=== PATIENT | female | born 2000 | race Caucasian/White ===

== ENCOUNTER 2020-05-02 12:03 | Outpatient (CLI) | payer OTHER | END 2020-05-02 23:59 | disposition critical access hospital (66) | LOC: EMS 12:03 | PROVIDERS: ATTEND Surgery | DX: M25.552 Pain in left hip (principal); V03.10XA Pedestrian on foot injured in collision with car, pick-up truck or van in traffic accident, initial encounter; Y93.01 Activity, walking, marching and hiking; Y92.413 State road as the place of occurrence of the external cause | CPT/HCPCS: A0425; A0429 ==

== ENCOUNTER 2020-07-03 14:40 | Emergency (ER) | payer OTHER ==
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
[2020-07-03 15:14] VITALS: BP 125/69
== END 2020-07-03 15:14 | disposition home or self-care (01) ==
LOC: ED 14:40
DX: M25.572 Pain in left ankle and joints of left foot (principal); M54.5 Low back pain
CPT/HCPCS: 99282; 99283

== ENCOUNTER 2021-01-18 11:20 | Emergency (ER) | payer OTHER ==
[2021-01-18 11:54] LABS: BASOPHILS % (AUTO) 0.3 %; EOSINOPHILS % (AUTO) 0.3 %; HCT - HEMATOCRIT 42.5 % (37.0-47.0); HGB - HEMOGLOBIN 14.8 g/dL (12.0-16.0); LYMPHOCYTES % (AUTO) 16.9 %; MEAN CORPUSCULAR HEMOGLOBIN 29.4 pg (27.0-31.0); MEAN CORPUSCULAR HGB CONC 34.8 g/dL (32.0-36.0); MEAN CORPUSCULAR VOLUME 84.5 fL (81.0-99.0); MEAN PLATELET VOLUME 9.2 fL (7.9-10.8); MONOCYTES # (AUTO) 0.8 10^3/uL (0.0-1.0); MONOCYTES % (AUTO) 6.6 %; NEUTROPHILS # (AUTO) 8.7 10^3/uL (1.5-6.6); NEUTROPHILS % (AUTO) 75.5 %; PLT - PLATELET COUNT 275 10^3/uL (130-450); RED BLOOD COUNT 5.03 10^6/uL (4.20-5.40); WHITE BLOOD COUNT 11.6 x10^3/uL (4.8-10.8)
[2021-01-18 11:57] LABS: BILIRUBIN,URINE NEGATIVE (NEGATIVE); GLUCOSE, URINE (UA) NEGATIVE (NEGATIVE); KETONES,URINE (UA) NEGATIVE (NEGATIVE); LEUKOCYTE ESTERASE, URINE MODERATE (NEGATIVE); NITRITE,URINE NEGATIVE (NEGATIVE); OCCULT BLOOD,URINE MODERATE (NEGATIVE); PROTEIN,URINE 30 mg/dL (NEGATIVE); UROBILINOGEN,URINE 0.2 (NORMAL) E.U./dL (NORMAL)
[2021-01-18 11:59] LABS: CLARITY,URINE SL. CLOUDY (CLEAR); HCG UR QUAL NEGATIVE
[2021-01-18 12:00] LABS: BACTERIA,URINE Rare /HPF (None Seen); SQUAMOUS EPITHELIAL CELL,UR FEW Squamous (<= Few)
[2021-01-18 12:06] LABS: ALBUMIN 4.7 g/dL (3.2-5.5); ALBUMIN/GLOBULIN RATIO 1.5 (1.0-2.2); BILIRUBIN,TOTAL 1.1 mg/dL (0.2-1.0); CALCIUM 9.7 mg/dL (8.5-10.3); CREATININE 0.7 mg/dL (0.4-1.0); POTASSIUM 3.8 mmol/L (3.5-5.0); TOTAL PROTEIN 7.8 g/dL (6.7-8.2)
--- NOTE | 2021-01-18 13:47 | ED Physician Documentation ---
PD HPI ABD PAIN - Stated complaint Stated Complaint: STOMACH PX - Chief complaint Chief Complaint: Abd Pain - History obtained from History obtained from: Patient - History of Present Illness Timing - onset: How many days ago (2) Timing - duration: Days (2) Timing - details: Abrupt onset (had some pain lower abd cramping for couple days and the abrupt onset pelvic pain last night, that persists into today.), Still present Quality: Aching, Sharp, Pain. No: Fullness/distended Location: RLQ (with some pain to right today), Suprapubic, LLQ (main area at onset) Improved by: No: Eating Worsened by: Moving, Palpation. No: Eating Associated symptoms: Nausea, Dysuria. No: Fever, Vomiting, Diarrhea, Constipation, Loss of appetite, Vaginal bleeding, Vaginal dc Similar symptoms before: Has not had sx before Recently seen: Not recently seen Review of Systems Constitutional: denies: Fever, Chills Nose: denies: Rhinorrhea / runny nose, Congestion Throat: denies: Sore throat Respiratory: denies: Cough GI: reports: Abdominal Pain, Nausea. denies: Constipation, Diarrhea : reports: Dysuria, Frequency, LMP (November, but states her periods are typically irregular.). 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 HEENT: None Psych: None Musculoskeletal: None Derm: None - Past Surgical History Past Surgical History: No - Present Medications Home Medications: Ambulatory Orders Medication Instructions Recorded Confirmed HYDROcod/ACETAM 5/325 [[place] 5/325] 1 ea PO Q6H PRN #12 tablet 01/18/21 Ibuprofen [Motrin] 600 mg PO TID PRN #15 tab 01/18/21 Ondansetron Odt [Zofran] 4 mg TL Q6H PRN #10 tablet 01/18/21 cephALEXin [Keflex] 500 mg PO TID 5 Days #15 cap 01/18/21 - Allergies Allergies/Adverse Reactions: Allergies Allergy/AdvReac Type Severity Reaction Status Date / Time No Known Drug Allergies Allergy Verified 01/18/21 11:34 - Social History Does the pt smoke?: No Smoking Status: Never smoker Does the pt drink ETOH?: No Does the pt have substance abuse?: No - Immunizations Immunizations are current?: Yes - POLST Patient has POLST: No PD ED PE NORMAL - Vitals Vital signs reviewed: Yes - General General: Alert and oriented X 3, Well developed/nourished, Other (appears in pain) - Neck Neck: Supple, no meningeal sign, No adenopathy - Cardiac Cardiac: RRR, No murmur - Respiratory Respiratory: Clear bilaterally - Abdomen Abdomen: Normal bowel sounds, Soft, Non distended, No organomegaly, Other (tender with some guarding LLQ mainly but some to RLQ and suprapubic/midline. No percussion nor rebound tenderness. ) - Female Female : Deferred - Rectal Rectal: Deferred - Back Back: No CVA TTP - Derm Derm: Normal color, Warm and dry, No rash Results - Vitals Vitals: Vital Signs - 24 hr 01/18/21 01/18/21 01/18/21 11:29 13:48 15:00 Temperature 36.5 C 36.7 C Heart Rate 64 73 71 Respiratory 16 18 14 Rate Blood Pressure 126/79 117/81 H 105/67 O2 Saturation 98 99 100 01/18/21 16:33 Temperature 36.8 C Heart Rate 71 Respiratory 18 Rate Blood Pressure 107/66 O2 Saturation 98 Oxygen O2 Source Room air - Labs Labs: Laboratory Tests 01/18/21 01/18/21 01/18/21 11:45 11:49 11:49 WBC 11.6 H RBC 5.03 Hgb 14.8 Hct 42.5 MCV 84.5 MCH 29.4 MCHC 34.8 RDW 13.0 Plt Count 275 MPV 9.2 Neut # (Auto) 8.7 H Lymph # (Auto) 2.0 [place] # (Auto) 0.8 Eos # (Auto) 0.0 Baso # (Auto) 0.0 Absolute Nucleated RBC 0.00 Nucleated RBC % 0.0 Sodium 139 Potassium 3.8 Chloride 104 Carbon Dioxide 25 Anion Gap 10.0 BUN 18 Creatinine 0.7 Estimated GFR (MDRD) 107 Glucose 103 H Calcium 9.7 Total Bilirubin 1.1 H AST 24 ALT 26 Alkaline Phosphatase 59 Total Protein 7.8 Albumin 4.7 Globulin 3.1 Albumin/Globulin Ratio 1.5 Lipase 24 Urine Color YELLOW Urine Clarity SL. CLOUDY Urine pH 7.0 Ur Specific [place] 1.020 Urine Protein 30 H Urine Glucose (UA) NEGATIVE Urine Ketones NEGATIVE Urine Occult Blood MODERATE H Urine Nitrite NEGATIVE Urine Bilirubin NEGATIVE Urine Urobilinogen 0.2 (NORMAL) Ur Leukocyte Esterase MODERATE H Urine RBC 11-25 H Urine WBC 11-25 H Ur Squamous Epith Cells FEW Squamous Urine Bacteria Rare Ur Microscopic Review INDICATED Urine Culture Comments INDICATED Urine HCG, Qual NEGATIVE - Rads (name of study) pelvic/abd U/S Radiology: Prelim report reviewed (normal ovaries. small amount pelvic free fluid per tech verbal. appendix not visualized. ), See rad report PD MEDICAL DECISION MAKING - ED course Complexity details: re-evaluated patient (After some pain medicine. She is feeling better. Reevaluation of the stomach still has left lower suprapubic tenderness with minimal to none on the right. Shared decision was to not investigate further but presume a ruptured cyst and also likely bladder infection.), considered differential (Pain predominantly left lower but also some to the right lower quadrant. Abrupt onset last night. Will get ultrasound to evaluate for cysts torsion and free fluid. Can look for appendix as well.), d/w patient Departure - Departure Disposition: 01 Home, Self Care Clinical Impression: Lower abdominal pain, Ruptured ovarian cyst UTI (urinary tract infection) Qualifiers: Urinary tract infection type: acute cystitis Hematuria presence: without hematuria Qualified Code(s): N30.00 - Acute cystitis without hematuria Condition: Stable Record reviewed to determine appropriate education?: Yes Instructions: ED Cyst Ovarian, ED UTI Cystitis Female Prescriptions: cephALEXin [Keflex] 500 mg PO TID 5 Days #15 cap Ibuprofen [Motrin] 600 mg PO TID PRN #15 tab PRN Reason: Pain HYDROcod/ACETAM 5/325 [[place] 5/325] 1 ea PO Q6H PRN #12 tablet PRN Reason: Pain Ondansetron Odt [Zofran] 4 mg TL Q6H PRN #10 tablet PRN Reason: Nausea / Vomiting Comments: Off work 1 to 2 days due to acute pain. You do have likely a bladder infection based on your urine test. However your pain seems more likely to have come from a ruptured cyst on the left. There is no cyst seen on ultrasound but there is some free fluid in the area and the pattern and character of your pain would go along with that. Stay well-hydrated. Ondansetron if needed for nausea. Ibuprofen 3 times a day with food for the next several days. To that add Tylenol or hydrocodone as needed for pain in the short-term. Cephalexin antibiotic as prescribed for 5 days for the bladder. I would anticipate improvement over the next 2 to 3 days and resolution by 3 to 5 days. Recheck if not improving in that timeframe and return if worsening to include: worse pain, fever, repetitive vomiting, bloody stool or other concerns. Forms: Activity restrictions Discharge Date/Time: 01/18/21 16:51
[2021-01-18] MEDS ORDERED: MORPHINE 2 MG/ML CARPUJECT IVP STA (13:59)
[2021-01-18] MEDS ORDERED: SODIUM CHLORIDE 0.9% 1,000 ML IV STA (13:59)
[2021-01-18] MEDS ORDERED: KETOROLAC 15 MG/ML VIAL IVP STA (13:59)
[2021-01-18] MEDS ORDERED: ONDANSETRON 4 MG/2 ML VIAL IVP STA (13:59)
--- NOTE | 2021-01-18 16:18 | Ultrasound Report ---
PROCEDURE: Abdomen Limited INDICATIONS: lower abd pain today TECHNIQUE: Real-time focused scanning was performed of the abdomen, with image documentation. COMPARISON: FINDINGS: The appendix was not discretely visualized. A small amount of free fluid is demonstrated within the pelvis. IMPRESSION: 1. Appendix not discretely visualized sonographically. 2. Small amount of pelvic free fluid appears within physiologic limits. Reviewed by: Keven Barone MD on 01/18/2021 4:17 PM PDT Approved by: Keven Barone MD on 01/18/2021 4:17 PM PDT Station ID: [id number]
[2021-01-18] MEDS ORDERED: cephALEXin 250 MG CAPSULE PO STA (16:19)
--- NOTE | 2021-01-18 16:21 | Ultrasound Report ---
PROCEDURE: Pelvic w/Transvag+Doppler Comp INDICATIONS: pelvic pain, R TECHNIQUE: Real-time scanning was performed of the pelvic organs, with image documentation. Additional endovagi nal scanning was necessary due to incomplete visualization of the adnexal and endometrial structures by transabdominal scanning. COMPARISON: None. FINDINGS: Uterus: Uterus is levoverted and measures up to 3.4 x 3.4 x 5.2 cm. The endometrium measures 0.4 cm in combined thickness. Ovaries: The right ovary measures 3.2 x 2.1 x 2.2 cm on the left ovary measures 3.7 x 2.3 x 2.8 cm. No adnexal masses. Patent arterial and venous flow demonstrated within the ovaries. There is a small amount of free fluid in the pelvic cul-de-sac and adjacent to the left ovary. IMPRESSION: 1. No sonographic evidence of ovarian torsion at this time. No adnexal masses. 2. Small amount of pelvic free fluid appears within physiologic limits. Reviewed by: Keven Barone MD on 01/18/2021 4:20 PM PDT Approved by: Keven Barone MD on 01/18/2021 4:20 PM PDT Station ID: [id number]
[2021-01-18 16:33] VITALS: BP 107/66
== END 2021-01-18 16:51 | disposition home or self-care (01) ==
LOC: ED 11:20
DX: N83.202 Unspecified ovarian cyst, left side (principal); N30.00 Acute cystitis without hematuria
CPT/HCPCS: 36415; 76705; 76830; 76856; 80053; 81001; 81025; 83690; 85025; 87077; 87086; 93975; 96374; 96375; 99284; A9270; 81003

== ENCOUNTER 2021-08-17 14:24 | Emergency (ER) | payer OTHER ==
[2021-08-17 14:51] LABS: BASOPHILS % (AUTO) 0.3 %; EOSINOPHILS # (AUTO) 0.1 10^3/uL (0.0-0.7); EOSINOPHILS % (AUTO) 0.8 %; HCT - HEMATOCRIT 40.9 % (37.0-47.0); HGB - HEMOGLOBIN 14.2 g/dL (12.0-16.0); LYMPHOCYTES # (AUTO) 2.1 10^3/uL (1.5-3.5); LYMPHOCYTES % (AUTO) 22.6 %; MEAN CORPUSCULAR HEMOGLOBIN 29.5 pg (27.0-31.0); MEAN CORPUSCULAR HGB CONC 34.7 g/dL (32.0-36.0); MEAN CORPUSCULAR VOLUME 84.9 fL (81.0-99.0); MEAN PLATELET VOLUME 9.6 fL (7.9-10.8); MONOCYTES # (AUTO) 0.5 10^3/uL (0.0-1.0); MONOCYTES % (AUTO) 5.6 %; NEUTROPHILS # (AUTO) 6.6 10^3/uL (1.5-6.6); NEUTROPHILS % (AUTO) 70.4 %; PLT - PLATELET COUNT 253 10^3/uL (130-450); RED BLOOD COUNT 4.82 10^6/uL (4.20-5.40); RED CELL DISTRIBUTION WIDTH 13.7 % (12.0-15.0); WHITE BLOOD COUNT 9.3 x10^3/uL (4.8-10.8)
[2021-08-17 15:02] LABS: ALBUMIN 4.3 g/dL (3.2-5.5); ALBUMIN/GLOBULIN RATIO 1.5 (1.0-2.2); CALCIUM 9.5 mg/dL (8.5-10.3); CREATININE 0.6 mg/dL (0.4-1.0); POTASSIUM 3.9 mmol/L (3.5-5.0); TOTAL PROTEIN 7.2 g/dL (6.7-8.2)
[2021-08-17 16:33] LABS: BILIRUBIN,URINE NEGATIVE (NEGATIVE); GLUCOSE, URINE (UA) NEGATIVE (NEGATIVE); KETONES,URINE (UA) TRACE mg/dL (NEGATIVE); LEUKOCYTE ESTERASE, URINE NEGATIVE (NEGATIVE); NITRITE,URINE NEGATIVE (NEGATIVE); OCCULT BLOOD,URINE NEGATIVE (NEGATIVE); PH,URINE 5.5 PH (5.0-7.5); PROTEIN,URINE NEGATIVE (NEGATIVE); UROBILINOGEN,URINE 0.2 (NORMAL) E.U./dL (NORMAL)
[2021-08-17 16:35] LABS: CLARITY,URINE CLEAR (CLEAR); HCG UR QUAL NEGATIVE
--- NOTE | 2021-08-17 16:37 | ED Physician Documentation ---
History of Present Illness - Stated complaint Stated Complaint: ABD PX - Chief complaint Chief Complaint: Abd Pain - Additonal information Additional information: 21-year-old female was referred to the emergency department from an outside [facility] for evaluation of dysuria as well as right lower quadrant abdominal pain. States that the symptoms began about 3 days ago. She states that she does have increased pain after eating and that has caused some diarrhea recently. No fevers no vomiting. Neck was concerned she had appendicitis. Review of Systems Constitutional: denies: Fever, Chills Eyes: reports: Reviewed and negative Ears: reports: Reviewed and negative Nose: reports: Reviewed and negative Cardiac: reports: Reviewed and negative Respiratory: reports: Reviewed and negative GI: reports: Abdominal Pain, Nausea, Diarrhea. denies: Vomiting : reports: Dysuria. 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 HEENT: None Psych: None Musculoskeletal: None Derm: None - Past Surgical History Past Surgical History: No - Present Medications Home Medications: Ambulatory Orders Medication Instructions Recorded Confirmed HYDROcod/ACETAM 5/325 [[place] 5/325] 1 ea PO Q6H PRN #12 tablet 01/18/21 Ibuprofen [Motrin] 600 mg PO TID PRN #15 tab 01/18/21 Ondansetron Odt [Zofran] 4 mg TL Q6H PRN #10 tablet 01/18/21 cephALEXin [Keflex] 500 mg PO TID 5 Days #15 cap 01/18/21 - Allergies Allergies/Adverse Reactions: Allergies Allergy/AdvReac Type Severity Reaction Status Date / Time No Known Drug Allergies Allergy Verified 08/17/21 14:34 - Social History Does the pt smoke?: No Smoking Status: Never smoker Does the pt drink ETOH?: No Does the pt have substance abuse?: No - Immunizations Immunizations are current?: Yes - POLST Patient has POLST: No PD ED PE NORMAL - General General: Alert and oriented X 3, No acute distress - HEENT HEENT: PERRL - Neck Neck: Supple, no meningeal sign - Cardiac Cardiac: RRR, No murmur - Respiratory Respiratory: No respiratory distress, Clear bilaterally - Abdomen Abdomen: Normal bowel sounds, Soft. No: Non tender (Mild tenderness in the right lower quadrant without guarding or rebound. No flank or CVA tenderness. Negative Leyva's.) Results - Vitals Vitals: Vital Signs - 24 hr 08/17/21 08/17/21 14:34 17:33 Temperature 36.5 C 37.1 C Heart Rate 76 67 Respiratory 16 20 Rate Blood Pressure 108/65 94/83 H O2 Saturation 99 100 Oxygen O2 Source Room air - Labs Labs: Laboratory Tests 08/17/21 08/17/21 08/17/21 14:46 14:46 16:26 WBC 9.3 RBC 4.82 Hgb 14.2 Hct 40.9 MCV 84.9 MCH 29.5 MCHC 34.7 RDW 13.7 Plt Count 253 MPV 9.6 Neut # (Auto) 6.6 Lymph # (Auto) 2.1 [place] # (Auto) 0.5 Eos # (Auto) 0.1 Baso # (Auto) 0.0 Absolute Nucleated RBC 0.00 Nucleated RBC % 0.0 Sodium 137 Potassium 3.9 Chloride 106 Carbon Dioxide 24 Anion Gap 7.0 BUN 18 Creatinine 0.6 Estimated GFR (MDRD) 126 Glucose 118 H Calcium 9.5 Total Bilirubin 1.0 AST 20 ALT 25 Alkaline Phosphatase 51 Total Protein 7.2 Albumin 4.3 Globulin 2.9 Albumin/Globulin Ratio 1.5 Lipase 30 Urine Color DARK YELLOW Urine Clarity CLEAR Urine pH 5.5 Ur Specific [place] >=1.030 H Urine Protein NEGATIVE Urine Glucose (UA) NEGATIVE Urine Ketones TRACE Urine Occult Blood NEGATIVE Urine Nitrite NEGATIVE Urine Bilirubin NEGATIVE Urine Urobilinogen 0.2 (NORMAL) Ur Leukocyte Esterase NEGATIVE Ur Microscopic Review NOT INDICATED Urine Culture Comments NOT INDICATED Urine HCG, Qual NEGATIVE - Rads (name of study) CT abd Radiology: Final report received (Dense appendicitis. Small to moderate amount of complex free fluid in the pelvis suggestive of blood products or proteinaceous debris. Findings likely represent sequelae of a ruptured hemorrhagic cyst. Peripherally enhancing left ovarian cyst measuring up to 1.8 cm likely representing a physiolog) PD MEDICAL DECISION MAKING - ED course Complexity details: reviewed results, re-evaluated patient, considered differential, d/w patient ED course: 21-year-old female presents emergency department for evaluation of lower abdominal discomfort as well as dysuria. She was referred to the ED for concerns of appendicitis from an outpatient clinic. Screening labs are without acute worrisome findings. No fevers no leukocytosis no significant electrolyte derangement. On abdominal exam she did have some moderate right lower quadrant abdominal tenderness but no guarding or rebound. CT of the abdomen was completed and it showed likely sequelae of a ruptured hemorrhagic cyst with some proteinaceous debris and moderate amount of complex free fluid in the pelvis. I discussed the findings with the patient. She stated that she had had ruptured ovarian hemorrhagic cyst in the past. They were typically more painful than this. Reassuringly the CT scan did not show appendicitis. The patient reported dysuria she has no urinary findings therefore will defer antibiotics unless culture positive. Emergent return precautions discussed. Departure - Departure Disposition: 01 Home, Self Care Clinical Impression: Hemorrhagic cyst of right ovary Condition: Stable Record reviewed to determine appropriate education?: Yes Instructions: Abdominal Pain Comments: You are seen in the ER today for discomfort in your lower abdominal region. Your screening labs including your blood count electrolytes were all essentially normal. Your urine does not show any signs of infection. We did do a CT of the abdomen and it suggest that you have a ruptured hemorrhagic ovarian cyst. There is no specific treatment for this pain simply gets better with a little bit of time. We do recommend Tylenol or ibuprofen. I would encourage you to increase your free water intake as well as start taking fiber supplementation to help improve the regularity of your bowel movements. If you develop fevers, have sudden severe abdominal pain uncontrolled vomiting then please return immediately to the ER for a second evaluation.
[2021-08-17] MEDS ORDERED: IOVERSOL 320 100 ML VIAL IVP ONE ×2 (16:46→17:03)
--- NOTE | 2021-08-17 17:28 | CT Report ---
PROCEDURE: Abdomen/Pelvis W INDICATIONS: RLQ abd CONTRAST: IV CONTRAST: Optiray 320 ml: 100 PO CONTRAST: *NO PO CONTRAST TECHNIQUE: After the administration of intravenous contrast, 5 mm thick sections acquired from the diaphragms to the symphysis. 5 mm thick coronal and sagittal reformats were acquired. For radiation dose reducti on, the following was used: automated exposure control, adjustment of mA and/or kV according to sue ent size. COMPARISON: None. FINDINGS: Image quality: Excellent. ABDOMEN: Lung bases: There is mild dependent atelectasis. Heart size is normal. There is a small hiatal hernia . Solid organs: Evaluation of the liver demonstrates no focal hepatic lesions. Gallbladder appears with in normal limits without calcified gallstones. Biliary system is non dilated. The spleen is normal i n size. Pancreas enhances normally without peripancreatic fat stranding or fluid collections. No adr enal nodules. Kidneys demonstrate no hydronephrosis. There is a small hypodensity in the right kidne y which is too small to characterize but likely represents a cyst. Peritoneum and bowel: Small bowel loops demonstrate normal wall thickness and caliber. The appendix i s normal in appearance. There is colonic diverticulosis without acute diverticulitis. Mild segmental wall thickening is demonstrated in the sigmoid colon adjacent to the complex free fluid in the pelvis . No free air. A small to moderate amount of free fluid is demonstrated in the pelvis. Nodes and vessels: No retroperitoneal or mesenteric adenopathy by size criteria. Aorta and inferior vena cava are normal in size. Miscellaneous: No ventral hernias. PELVIS: Genitourinary: Bladder wall thickness is normal. There is a peripherally enhancing cyst within the l eft ovary measuring up to 1.8 cm compatible with a physiologic cyst. A small to moderate amount of fr ee fluid is demonstrated within the pelvis with attenuation values higher than expected for simple fl uid. Miscellaneous: No inguinal hernias or adenopathy. Bones: No suspicious bony lesions. No vertebral body compression fractures. IMPRESSION: 1. No evidence of appendicitis. 2. Small to moderate amount of complex free fluid in the pelvis suggestive of blood product or protei naceous debris. The findings likely represent sequelae of a ruptured hemorrhagic cyst. Consider furth er evaluation with a pelvic ultrasound if clinically indicated. 3. Peripherally enhancing left ovarian cyst measuring up to 1.8 cm likely representing a physiologic cyst. Further evaluation may also be obtained with ultrasound. Reviewed by: Keven Barone MD on 08/17/2021 4:27 PM RASHAAD Approved by: Keven Barone MD on 08/17/2021 4:27 PM PA Station ID: [id number]
[2021-08-17 17:34] VITALS: BP 94/83
== END 2021-08-17 18:33 | disposition home or self-care (01) ==
LOC: ED 14:24
DX: N83.201 Unspecified ovarian cyst, right side (principal); N83.202 Unspecified ovarian cyst, left side
CPT/HCPCS: 36415; 74177; 80053; 81003; 81025; 83690; 85025; 99282; 99284; Q9967; 81001; 87086